=== PATIENT | male | born 1975 | race Caucasian/White ===

== ENCOUNTER 2019-10-07 18:13 | Emergency (ER) | payer OTHER, SELFPAY ==
[2019-10-07 18:14] VITALS: BP 165/101; PULSE 66; RESP 14; TEMP 36.4; O2SAT 99; BMI 26.0
[2019-10-07] MEDS: 0.9% Normal Saline 1,000 ML 1000 ML IV (18:45)
[2019-10-07] MEDS: Ondansetron 4 MG/2 ML Vial IV (18:46)
[2019-10-07] MEDS: Morphine 4 MG/ML Syringe IV (18:46)
[2019-10-07] MEDS: Mag Hydrox/Al Hydrox/Simeth 30 ML UDC PO (18:46)
[2019-10-07 19:04] LABS: Absolute Neutrophil Count 5.5 X10^3/uL (2.0-7.7); Basophil# 0.02 X10^3/uL; Basophil% 0.3 % (0-1); Eosinophil# 0.05 X10^3/uL; Eosinophils% 0.6 % (0-5); Hematocrit 48.9 % (40-54); Hemoglobin 16.1 g/dL (13.0-16.5); Lymphocyte % 21.5 % (19-41); Mean Corp Hgb Conc 32.9 g/dL (32-36); Mean Corpuscular Volume 87.9 fL (80-94); Mean Platelet Vol. 11.3 fl (6.2-12.0); Monocyte# 0.66 X10^3/uL; Monocyte% 8.3 % (0-10); NRBC Flagged by Analyzer 0 % (0-5); Neutrophil # 5.46 X10^3/uL (2.7-7.7); Platelet Count 216 K/mm3 (150-450); RBC Distribution Width CV 12.2 % (11.6-14.6); RBC Distribution Width SD 39.4 fl (35.1-43.9); Red Blood Count 5.56 M/mm3 (4.6-6.2); White Blood Count 7.9 K/mm3 (4.4-11.0)
[2019-10-07 19:17] LABS: ALB/GLOB Ratio 1.1 RATIO (0.9-2.4); AST(SGOT) 21 U/L (15-37); Alanine Aminotransfer ALT/SGPT 31 U/L (16-61); Albumin, Serum 4.3 g/dL (3.2-5.0); Alkaline Phosphatase 55 U/L (45-117); Anion Gap 6 (5-15); BUN 16 mg/dL (7-18); BUN/Creat Ratio 12.9 RATIO (10-20); Calcium,Total 10.1 mg/dL (8.5-10.1); Chloride 100 mmol/L (98-107); Creatinine, Serum 1.24 mg/dL (0.70-1.30); EST Glomerular Filtration Rate 67 mL/min (>60); Est Glom Filt Rate - Afr Amer 81 mL/min (>60); Estimated Creatinine Clearance 75.23 ml/min; Glucose 102 mg/dL (74-106); Lipase 115 U/L (73-393); Potassium 3.2 mmol/L (3.5-5.1); Protein, Total 8.3 g/dL (6.4-8.2); Sodium Level 137 mmol/L (136-145)
--- NOTE | 2019-10-07 19:30 | ED.DCSUM_ITS ---
- ER Visit Summary Date of Service: 10/07/19 Chief Complaint: Abdominal pain History of Present Illness: The patient is a 44 M who goes to the [facility]. He reports that he has epigastric dull pain that began 24 hours ago. Is gradually worsened now radiates into his back. Describes it as a sharp pain is 5-10 at worst and 4-10 currently. Is worsened by laying down or sitting down. It is unchanged with food. Nothing makes this better. He denies any nausea vomiting. Reports he had 3 episodes of diarrhea. No blood in stools or black tarry stools. No dysuria frequency. No history of fatty or spicy food intolerance. Physical Examination: Vitals: Stable. Afebrile. General: Well-nourished and well-developed. Head: Normocephalic atraumatic. Neck: Supple, no lymphadenopathy. No JVD. Nontender. Cardiovascular: Regular rate and rhythm. No murmurs. Respiratory: No respiratory distress. Clear to auscultation bilaterally. Abdominal: Soft, mild epigastric tenderness to palpation, nondistended, normal bowel sounds. No guarding, rebound, or peritoneal signs. Back: Nontender. Extremities: Nontender, no edema. Skin: Normal color, no rash. Neurologic: Alert and oriented ?3. Cranial nerves II through XII are intact. Normal strength and sensation. Psych: Normal affect. Test Results: CBC is normal. Chem-7 shows a potassium 3.2. LFTs show total protein of 8.3. Lipase normal. Emergency Department Course and Treatment: Patient treated with a dose of morphine and Zofran IV. He was given a GI cocktail p.o. He is resting comfortably and would like to go home Treatment Plan: Patient be discharged instructions to follow-up his primary care physician in 1 to 2 days if not improving. He is also given the name of Dr. Beach to follow-up with for further evaluation. We did discuss the possibility of an ulcer and the potential need for endoscopy. He will be placed on Prilosec, Sargent, and Zofran. Return to the emergency department for any worsening symptoms. Disposition: To home in improved and stable condition. Impression: 1. Abdominal pain, uncertain cause. This note was generated with [employer] software. It may contain incorrect words, spelling, and punctuation that were not noted in review of the chart prior to signing ED Disposition - Plan for ED Patient: Disposition: Home or Assisted Living Instructions: ABDOMINAL PAIN, Unkown Cause, (Male) Prescriptions: Hydrocodone Bitart/Apap 5-325 [Sargent 5MG-325MG] 1 tab PO Q4H PRN PRN 2 Days #10 tab PRN Reason: Pain Prescription Printed Omeprazole [Prilosec] 20 mg PO DAILY #30 cap Prescription Printed Ondansetron [Zofran Odt] 4 mg PO Q8H PRN PRN #10 tab PRN Reason: Nausea Prescription Printed Referrals: LEE HESTER [Other] - 1-2 Days if not improving Jimmy Beach MD [STAFF PHYSICIAN] - 1 Week
[2019-10-07 20:42] VITALS: BP 145/71; PULSE 72; RESP 18; O2SAT 97
== END 2019-10-07 20:30 | disposition home or self-care (01) ==
PROVIDERS: Emergency Provider Emergency Medicine
DX: R10.9 Unspecified abdominal pain (principal); R19.7 Diarrhea, unspecified; I10 Essential (primary) hypertension; K21.9 Gastro-esophageal reflux disease without esophagitis; Z79.899 Other long term (current) drug therapy
CPT/HCPCS: 80053; 83690; 85025; 96361; 96374; 96375; 99283; J2405